=== PATIENT | male | born 1950 | race Caucasian/White ===

== ENCOUNTER 2023-01-30 11:02 | Outpatient (AMB) | payer OTHER, SELFPAY ==
[2023-01-30 11:03] VITALS: BP 118/74; PULSE 90; O2SAT 92; BMI 21.0
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
== END 2023-01-30 11:55 | disposition home or self-care (01) ==
PROVIDERS: Visit Provider Psychiatry & Neurology Neurology
DX: G40.909 Epilepsy, unspecified, not intractable, without status epilepticus (principal); R41.3 Other amnesia
CPT/HCPCS: 99204

== ENCOUNTER → 2023-01-30 11:02 | Outpatient (BNVA) | payer OTHER, SELFPAY | PROVIDERS: Visit Provider Psychiatry & Neurology Neurology ==

== ENCOUNTER 2023-04-05 10:27 | Outpatient (AMB) | payer OTHER, SELFPAY ==
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
[2023-04-05 10:35] VITALS: BP 130/78; PULSE 70; RESP 17; O2SAT 98; BMI 21.0
== END 2023-04-05 11:29 | disposition home or self-care (01) ==
PROVIDERS: Visit Provider Nurse Practitioner Family
DX: G40.909 Epilepsy, unspecified, not intractable, without status epilepticus (principal); R41.3 Other amnesia
CPT/HCPCS: 99214

== ENCOUNTER → 2023-04-05 10:27 | Outpatient (BNVA) | payer OTHER, SELFPAY | PROVIDERS: Visit Provider Nurse Practitioner Family | DX: G40.909 Epilepsy, unspecified, not intractable, without status epilepticus (principal); R41.3 Other amnesia ==

== ENCOUNTER 2023-05-08 13:24 | Outpatient (AMB) | payer OTHER, SELFPAY ==
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
[2023-05-08 13:31] VITALS: BP 110/62; PULSE 64; O2SAT 94
== END 2023-05-08 14:09 | disposition home or self-care (01) ==
PROVIDERS: PCP Internal Medicine; Visit Provider Nurse Practitioner Family
DX: G40.909 Epilepsy, unspecified, not intractable, without status epilepticus (principal); R41.3 Other amnesia
CPT/HCPCS: 99214

== ENCOUNTER → 2023-05-08 13:24 | Outpatient (BNVA) | payer OTHER, SELFPAY | PROVIDERS: PCP Internal Medicine; Visit Provider Nurse Practitioner Family ==

== ENCOUNTER 2023-09-06 14:36 | Outpatient (AMB) | payer OTHER, SELFPAY ==
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
[2023-09-06 15:01] VITALS: BP 124/82; PULSE 69; O2SAT 99; BMI 21.7
== END 2023-09-06 15:50 | disposition home or self-care (01) ==
LOC: HO.HSMS 14:36
PROVIDERS: PCP Internal Medicine; Visit Provider Nurse Practitioner Family
DX: G40.909 Epilepsy, unspecified, not intractable, without status epilepticus (principal); R41.3 Other amnesia
CPT/HCPCS: 99214

== ENCOUNTER → 2023-09-06 14:36 | Outpatient (BNVA) | payer OTHER, SELFPAY | PROVIDERS: PCP Internal Medicine; Visit Provider Nurse Practitioner Family ==

== ENCOUNTER 2023-09-06 15:52 | Outpatient (REF) | payer OTHER, SELFPAY ==
[2023-09-06 18:21] LABS: MANUAL DIFF FLAG NO
[2023-09-06 18:36] LABS: Basophils Absolute Auto 0.1 X10*3/uL (0.0-0.2); Basophils Percent Auto 0.7 % (0-2); Eosinophils Absolute Auto 0.3 X10*3/uL (0.0-0.4); Eosinophils Percent Auto 4.6 % (0-4); Hematocrit 44.1 % (42.0-52.0); Hemoglobin 15.1 g/dl (14.0-18.0); Imm Gran Abs Auto 0.01 X10*3/uL (0.00-0.03); Imm Gran Pct Auto 0.1 % (0.0-0.4); Lymphocytes Absolute Auto 1.4 X10*3/uL (1.2-4.9); Lymphocytes Percent Auto 18.9 % (20-40); Mean Corpuscular HGB Conc 34.2 g/dl (31.0-36.0); Mean Corpuscular Hemoglobin 32.7 pg (27.0-33.0); Mean Corpuscular Volume 95.5 fL (80.0-98.0); Monocytes Absolute Auto 0.6 X10*3/uL (0.1-1.2); Monocytes Percent Auto 8.6 % (2-11); Neutrophils Percent Auto 67.1 % (45-73); Platelet Count 242 X10*3/uL (160-400); Red Blood Count 4.62 X10*6/uL (4.60-5.80); Red Cell Distribution Width 12.8 % (11.0-16.0); White Blood Count 7.5 X10*3/uL (4.8-10.8)
[2023-09-06 19:16] LABS: Erythrocyte Sedimentation Rate 5 MM/HR (0-15)
[2023-09-06 19:24] LABS: Alanine Aminotransferase 18 U/L (0-40); Albumin Level 4.4 g/dL (3.5-5.0); Alkaline Phosphatase 77 U/L (39-117); Anion Gap 11 (12-20); Aspartate Amino Transferase 18 U/L (5-37); Bilirubin Total 0.2 mg/dL (0.0-1.0); Blood Urea Nitrogen 17 mg/dL (9-16); Calcium 9.3 mg/dL (8.4-10.2); Carbon Dioxide 29 mmol/L (22-29); Chloride 109 mmol/L (96-108); Estimated Glomerular Filt Rate 42; Glucose Random 100 mg/dL (60-115); Potassium 4.9 mmol/L (3.3-5.1); Sodium 144 mmol/L (135-145)
[2023-09-06 19:53] LABS: Folate 6.4 ng/mL (> or = 4.0); Vitamin B12 839 pg/mL (200-900)
[2023-09-11 16:18] LABS: Vitamin D 25-OH, D2 <4 ng/mL; Vitamin D 25-OH, D3 15 ng/mL; Vitamin D 25-OH, Total 15 ng/mL (30-100)
== END 2023-09-06 15:53 | disposition home or self-care (01) ==
LOC: HO.HKASLDS 15:52
PROVIDERS: Psychiatry & Neurology Neurology; Visit Provider Nurse Practitioner Family
DX: R41.3 Other amnesia (principal); G40.909 Epilepsy, unspecified, not intractable, without status epilepticus
CPT/HCPCS: 36415; 80053; 82306; 82607; 82746; 84443; 85025; 85652

== ENCOUNTER 2024-03-11 13:43 | Outpatient (AMB) | payer OTHER, SELFPAY ==
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
[2024-03-11 13:50] VITALS: BP 120/68; PULSE 65; RESP 17; O2SAT 98; BMI 21.0
== END 2024-03-11 14:45 | disposition home or self-care (01) ==
PROVIDERS: PCP Internal Medicine; Visit Provider Psychiatry & Neurology Neurology
DX: G40.909 Epilepsy, unspecified, not intractable, without status epilepticus (principal); R41.3 Other amnesia
CPT/HCPCS: 99214; G2211

== ENCOUNTER → 2024-03-11 13:43 | Outpatient (BNVA) | payer OTHER, SELFPAY | PROVIDERS: PCP Internal Medicine; Visit Provider Psychiatry & Neurology Neurology | DX: G40.909 Epilepsy, unspecified, not intractable, without status epilepticus (principal); R41.3 Other amnesia ==

== ENCOUNTER 2024-12-17 13:36 | Outpatient (AMB) | payer OTHER, SELFPAY ==
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
[2024-12-17 13:48] VITALS: BP 136/80; PULSE 64; BMI 21.2
--- OUTSIDE RECORDS SUMMARY | 2024-12-17 14:20 | XMS_ITS | Clinical Summary ---
Author Organization [facility] [address] [facility] Address [address] [place] [address] Phone Care Team Providers Care Clipping Marker Name Role Phone Unavailable Primary Care Provider Unavailabl e Social History Tobacco Use Types Packs/Day Years Used Date Smoking Tobacco: Never Assessed Sex and Gender Information Value Date Recorded Sex Assigned at Not on file Legal Sex Male 12:43 PM EST Gender Identity Not on file Sexual Orientation Not on file Plan of Treatment Health Maintenance Due Date Last Done Comments COVID-19 Vaccine (#1) 12/21/1955 DTaP,Tdap,and Td Vaccines (1 - Tdap) 1969 Pneumococcal Vaccine: 50+ Ye ars (1 of 2 - PCV) 1969 Zoster Vaccines (1 of 2) 1969 Abdominal Aortic Aneurysm (A AA) Screen 05/07/2024 Cholesterol Screening (Lipid Panel) 05/07/2024 Colorectal Cancer Screening: Colonoscopy 05/07/2024 Depression Screening 05/07/2024 Falls Risk Assessment 05/07/2024 Hepatitis C Screening 05/07/2024 Medicare Annual Wellness Visit 05/07/2024 Social Influencers of Health Screening 05/07/2024 Influenza Vaccine (#1) 2025 RSV Immunization Adult Patie nts (1 - 1-dose 75+ series) 2025 HIB Vaccines Aged Out No longer eligi ble based on patient's age to complete this topic HPV Vaccines Aged Out No longer eligi ble based on patient's age to complete this topic Hepatitis A Vaccines Aged Out No long er eligible based on patient's age to complete this topic Hepatitis B Vaccines Aged Out No long er eligible based on patient's age to complete this topic IPV Vaccines Aged Out No longer eligi ble based on patient's age to complete this topic MMR Vaccines Aged Out No longer eligi ble based on patient's age to complete this topic Meningococcal ACWY Vaccine Aged Out N o longer eligible based on patient's age to complete this topic Meningococcal B Vaccine Aged Out No l onger eligible based on patient's age to complete this topic RSV Immunization Patients Un shashi 20 months Aged Out No longer eligible b ased on patient's age to complete this topic Varicella Vaccines Aged Out No longer eligible based on patient's age to complete this topic Insurance [facility] [place] [place] [id number] [facility] [place] [id number]
== END 2024-12-17 14:43 | disposition home or self-care (01) ==
LOC: HO.HSMS 13:37
PROVIDERS: PCP Internal Medicine; Visit Provider Psychiatry & Neurology Neurology
DX: G40.909 Epilepsy, unspecified, not intractable, without status epilepticus (principal); R41.3 Other amnesia
CPT/HCPCS: 99214; G2211